=== PATIENT | male | born 1995 | race Caucasian/White ===

== ENCOUNTER 2025-05-19 07:53 | Emergency (ER) | payer MEDICAID, OTHER ==
[~2025-05-19] VITALS: Ht 167.6 cm; Wt 70.9 kg
[~2025-05-19 07:53] MED LIST: No home meds; XANA0.25 PO
[2025-05-19 07:57] VITALS: TEMP 98.8; O2SAT 98
[2025-05-19] MEDS ORDERED: SERT50TA29 (08:01)
[2025-05-19] MEDS ORDERED: HYDR-643 PO (08:01)
[2025-05-19 08:50] LABS: PLATELET COUNT, AUTOMATED 420 10^3/uL (150-450)
[2025-05-19 09:08] LABS: AMPHETAMINES LEVEL URINE NEGATIVE (NEGATIVE)
[2025-05-19 09:09] LABS: BARBITURATES URINE NEGATIVE (NEGATIVE); BENZODIAZEPINES URINE NEGATIVE (NEGATIVE); COCAINE METABOLITE URINE NEGATIVE (NEGATIVE); METHADONE URINE NEGATIVE (NEGATIVE); OPIATES URINE NEGATIVE (NEGATIVE); PHENCYCLIDINE URINE NEGATIVE (NEGATIVE)
[2025-05-19 09:11] LABS: ETHYL ALCOHOL (ETHANOL) < 0.003 % (0.000-0.010)
[2025-05-19 09:13] LABS: ALT/SGPT 20 U/L (7.0-40); AST/SGOT 23 U/L (<34); CALCIUM LEVEL 10.2 MG/DL (8.5-10.1); CARBON DIOXIDE LEVEL 21 MMOL/L (20-31); CHLORIDE LEVEL 104 MMOL/L (98-107); CREATININE FOR GFR 0.89 MG/DL (0.70-1.30); GLOMERULAR FILTRATION RATE > 90.0 (>60); POTASSIUM SERUM 4.4 MMOL/L (3.5-5.1); SALICYLATE LEVEL < 3.0 MG/DL (<30); SODIUM LEVEL 141 MMOL/L (136-145)
[2025-05-19] MEDS: LORazepam 1 MG TAB PO STA (09:16)
[2025-05-19 09:17] LABS: CANNABINOIDS URINE POSITIVE (NEGATIVE)
[2025-05-19 09:49] VITALS: BP 162/116
== END 2025-05-19 11:35 | disposition home or self-care (01) ==
LOC: M ED 08:34
DX: F41.0 Panic disorder [episodic paroxysmal anxiety] (principal); I10 Essential (primary) hypertension; Z79.899 Other long term (current) drug therapy

== ENCOUNTER 2025-05-22 12:31 | Emergency (ER) | payer MEDICAID, OTHER ==
[~2025-05-22] VITALS: Ht 170.2 cm; Wt 69.4 kg
[~2025-05-22 12:31] MED LIST changes: +HYDR-643 PO; +SERT50TA29
[2025-05-22 13:52] LABS: PLATELET COUNT, AUTOMATED 408 10^3/uL (150-450)
[2025-05-22 14:16] LABS: ETHYL ALCOHOL (ETHANOL) < 0.003 % (0.000-0.010)
[2025-05-22 14:17] LABS: SALICYLATE LEVEL < 3.0 MG/DL (<30)
[2025-05-22 14:18] LABS: ALT/SGPT 15 U/L (7.0-40); AST/SGOT 20 U/L (<34); CALCIUM LEVEL 10.9 MG/DL (8.5-10.1); CARBON DIOXIDE LEVEL 30 MMOL/L (20-31); CHLORIDE LEVEL 106 MMOL/L (98-107); CREATININE FOR GFR 1.02 MG/DL (0.70-1.30); GLOMERULAR FILTRATION RATE > 90.0 (>60); POTASSIUM SERUM 4.5 MMOL/L (3.5-5.1); SODIUM LEVEL 144 MMOL/L (136-145)
[2025-05-22 14:25] LABS: KETONE, URINE AUTO RFX TRACE mg/dL (NEGATIVE); LEUKOCYTE ESTERASE UR AUTO RFX NEGATIVE (NEGATIVE); NITRITE, URINE AUTO RFX NEGATIVE (NEGATIVE); RBC, URINE AUTO RFX 0 /HPF (0-3); SQUAM EPITHELIAL CELL UR AURFX 1 /HPF (0-6); WBC, URINE AUTO RFX 0 /HPF (0-3)
[2025-05-22 14:35] LABS: AMPHETAMINES LEVEL URINE NEGATIVE (NEGATIVE); BARBITURATES URINE NEGATIVE (NEGATIVE); BENZODIAZEPINES URINE NEGATIVE (NEGATIVE); COCAINE METABOLITE URINE NEGATIVE (NEGATIVE); METHADONE URINE NEGATIVE (NEGATIVE); OPIATES URINE NEGATIVE (NEGATIVE); PHENCYCLIDINE URINE NEGATIVE (NEGATIVE)
[2025-05-22] MEDS ORDERED: HYDR-3363 PO (14:37)
[2025-05-22] MEDS ORDERED: LOSA50TA28 PO (14:37)
[2025-05-22] MEDS ORDERED: ZOLO100T PO (14:37)
[2025-05-22 14:40] LABS: CANNABINOIDS URINE POSITIVE (NEGATIVE)
[2025-05-22] MEDS ORDERED: HOME MED LIST COMPLETE! XX SCH (14:40)
[2025-05-22] MEDS: LORazepam 1 MG TAB PO STA (15:01)
[2025-05-22] MEDS: **hydrALAZINE HCL** 25 MG TAB PO ONE (16:25)
[2025-05-22] MEDS: NIFEdipine 30 MG XL TAB PO STA (16:26)
[2025-05-22 21:37] VITALS: BP 136/99
[2025-05-22] MEDS: **hydrALAZINE HCL** 25 MG TAB PO SCH (21:37)
[2025-05-22] MEDS ORDERED: ATIV1TAB10 PO (21:57)
[2025-05-22 22:19] VITALS: BP 132/93; TEMP 98.3; O2SAT 98
[2025-05-23] MEDS ORDERED: LOSARTAN 50 MG TABLET PO SCH (09:00)
[2025-05-23] MEDS ORDERED: NIFEdipine 30 MG XL TAB PO SCH (09:00)
== END 2025-05-22 22:32 | disposition home or self-care (01) ==
LOC: M ED 13:58
DX: F41.1 Generalized anxiety disorder (principal); F32.A Depression, unspecified; Z87.891 Personal history of nicotine dependence; Z79.899 Other long term (current) drug therapy